=== PATIENT | female | born 1945 | race Caucasian/White ===

== ENCOUNTER → 2021-11-28 13:30 | Outpatient (BNVA) | payer MEDICARE, SELFPAY | PROVIDERS: PCP Family Medicine; Visit Provider Otolaryngology | DX: H61.23 Impacted cerumen, bilateral (principal); Z87.891 Personal history of nicotine dependence | CPT/HCPCS: 69210; 99212 ==

== ENCOUNTER → 2021-12-06 13:18 | Outpatient (BNVA) | payer MEDICARE, SELFPAY | PROVIDERS: PCP Family Medicine; Visit Provider Otolaryngology | DX: B36.9 Superficial mycosis, unspecified (principal); H62.41 Otitis externa in other diseases classified elsewhere, right ear; H90.2 Conductive hearing loss, unspecified; Z87.891 Personal history of nicotine dependence | CPT/HCPCS: 99213 ==

== ENCOUNTER → 2021-12-20 13:57 | Outpatient (BNVA) | payer MEDICARE, SELFPAY | PROVIDERS: PCP Family Medicine; Visit Provider Otolaryngology | DX: Z87.891 Personal history of nicotine dependence (principal); H66.91 Otitis media, unspecified, right ear | CPT/HCPCS: 99213 ==

== ENCOUNTER 2022-01-12 14:22 | Outpatient (CLI) | payer MEDICARE, SELFPAY ==
--- NOTE | 2022-01-12 14:30 | CT_ITS ---
WS: [id number] CT TEMPORAL BONES TECHNIQUE: Noncontrast CT of the temporal bones with coronal and sagittal reformatted images. CLINICAL INFORMATION: checking for mastoiditis COMPARISON: CT head 2 24,019 DLP: 477.[address] scans at [facility] use at least one of these dose optimization techniques: automated e xposure control; mA and/or kV adjustment per patient size (includes targeted exams where dose is matc hed to clinical indication); or iterative reconstruction. FINDINGS: Mild mucosal thickening ethmoid air cells. Paranasal sinuses are well aerated. Normal posterior nasop harynx. Normal parapharyngeal fat. Cavernous carotid calcification. RIGHT: Mastoid air cells are well aerated. Normal external auditory canal. Ossicles are normal in appearance . Middle ear is well aerated. Normal tegmen tympani. Semicircular canals and cochlea are normal in ap pearance. Prussak's space is normal. Normal inner ear structures. Normal vestibular aqueduct. Facial nerve recess is normal. LEFT: Mastoid air cells are well aerated. Normal external auditory canal. Ossicles are normal in appearance . Middle ear is well aerated. Normal tegmen tympani. Semicircular canals and cochlea are normal in ap pearance. Prussak's space is normal. Normal inner ear structures. Normal vestibular aqueduct. Facial nerve recess is normal. Visualized intracranial contents and posterior fossa are normal. CT/CT temporal bone wo con* [id number] IMPRESSION: Normal temporal bone CT
== END 2022-01-12 14:23 | disposition home or self-care (01) ==
LOC: RAD 14:23
PROVIDERS: PCP Family Medicine; Visit Provider Otolaryngology
DX: H66.91 Otitis media, unspecified, right ear (principal)
CPT/HCPCS: 70480

== ENCOUNTER 2022-02-22 15:29 | Emergency (ER) | payer MEDICARE, SELFPAY ==
[2022-02-22 16:01] VITALS: BP 105/62; PULSE 82; RESP 20; TEMP 37.3; O2SAT 96; BMI 43.6
[2022-02-22 17:16] VITALS: BP 115/71; PULSE 74; RESP 18; TEMP 37.9; O2SAT 93
--- NOTE | 2022-02-22 17:16 | PC.NURSE ---
in lobby speaking to pt. pt is in nad. pt updated on room status.
--- NOTE | 2022-02-22 18:01 | ED_ITS ---
HPI - Female Genitourinary General: Chief complaint: Urogenital-Female Stated complaint: Post op, can't urinate Time Seen by Provider: 02/22/22 17:48 Source: patient Mode of arrival: ambulatory Limitations: no limitations History of Present Illness: 76-year-old female who states she had a hemorrhoidectomy yesterday in [place] states that today she has not been able to urinate states she is only able to produce a little bit of urine she also had some body aches and low-grade fevers. She is having lower abdominal pain over her bladder states she has not been able to empty her bladder. Denies any wor sening proved factors. Associated symptoms: Deny abdominal pain, headache(s) or nausea Review of Systems Const: Reports: fever(s), chills and body aches Eyes: Denies: blurry vision or eye discomfort ENMT: Denies: throat pain or dental pain Card: Denies: chest pain Resp: Denies: dyspnea GI: Denies: abdominal pain, nausea, vomiting or diarrhea : Reports: difficulty voiding Musc: Denies: neck pain or back pain Skin/Breast: Denies: rash Neuro: Denies: headache(s) Psych: Denies: depression Mitchell/Lymph: Denies: easy bruising All/Imm: Denies: urticaria PFSH ED PFSH: Medical History Diabetes mellitus History of ear infections History of hypertension Surgical History History of hysterectomy History of tonsillectomy and adenoidectomy History of tubal ligation Family History Other CAD (coronary artery disease) Cancer Diabetes Social History Smoking and tobacco status: former smoker Physical Exam Const: COMMON NORMALS: no acute distress, patient oriented x3 and healthy appearing HENMT: COMMON NORMALS: normocephalic and atraumatic HEAD & SCALP: normocephalic and atraumatic Eye: COMMON NORMALS: Equal, round and reactive pupils present and EOMs intact bilaterally PUPIL: Yes Equal, round and reactive pupils present Neck/C-Spine: COMMON NORMALS: full ROM and supple Chest: COMMONS NORMALS: normal inspection of the chest and normal palpation of entire chest wall Resp: COMMON NORMALS: normal respiratory effort, No retractions, No use of accessory muscles and clear to auscultation bilaterally AUSCULTATION: clear to auscultation bilaterally Cardio: COMMON NORMALS: regular rate, regular rhythm and No murmurs present (Cardio) RATE: regular rate RHYTHM: regular rhythm GI: COMMON NORMALS: Normal to inspection, nondistended, normoactive bowel sounds present, Soft to palpation, non-tender and no masses PALPATION: Yes Soft to palpation Extremity: COMMON NORMALS: normal to inspection and full ROM Neuro: COMMON NORMALS: patient oriented x3, moves all extremities and no focal motor deficits Psych: COMMON NORMALS: mental status grossly normal, Normal thought process present and cooperative THOUGHT PROCESS: Normal thought process present Skin: COMMON NORMALS: no rashes or lesions noted and no wounds GENERAL SKIN EXAM: no rashes or lesions noted Course Vital Signs: Vital signs: Vital Signs Temperature 98.9 F 02/22/22 22:00 Pulse Rate 70 02/22/22 22:00 Respiratory Rate 18 02/22/22 22:00 Blood Pressure 124/72 02/22/22 22:00 Pulse Oximetry 94 02/22/22 22:00 MDM - Female Medical Decision Making Patient presents with urinary retention she feels much improved after Alfred she does have a slight leukocytosis could be from postop no signs of postop infection we will start her on Keflex so she is to follow-up with her surgeon in 2 to 4 days along with urology return if worsening she understands agrees to plan. Lab Data : 02/22/22 18:25 02/22/22 18:25 Radiology Impressions Abdomen/Pelvis CT 02/22/22 18:02 IMPRESSION: 1. Haziness and stranding in the area of the suspected periumbilical hernia repair, with scarring or cellulitis not differentiated. No strangulation of the short herniated small bowel loop inferior to the area of stranding and haziness. 2. Ileocolic anastomosis in the right mid abdomen. Evidence of adhesions. No small bowel obstruction. Marked sigmoid and mild descending diverticulosis, but no diverticulitis. 3. Alfred catheter in the collapsed bladder. 4. Minimally increased density in the dependent gallbladder, cause unclear. No calcified gallstones. 5. 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 Other findings detailed above. Laboratory Results WBC 21.2 10^3/uL (4.0-10.0) H 02/22/22 18: RBC 4.33 10^6/uL (4.1-5.3) 02/22/22 18:25 Hgb 12.4 g/dL (11.5-15.3) 02/22/22 18: Hct 40.9 % (37.0-47.0) 02/22/22 18: MCV 94.5 fl (81-99) 02/22/22 18: MCH 28.6 pg (28.0-34.0) 02/22/22 18: MCHC 30.3 g/dL (30.0-36.0) 02/22/22: RDW 13.3 % (12.1-15.1) 02/22/22: Plt Count 164 10^3/cmm (130-400) 02/22/22 18: MPV 11.6 fL (7.4-10.4) H 02/22/22 18:25 Neut % (Auto) 81.8 % 02/22/22 18: Lymph % (Auto) 10.4 % 02/22/22 18: Davidson % (Auto) 7.0 % 02/22/22 18: Eos % (Auto) 0.0 % 02/22/22 18: Baso % (Auto) 0.3 % 02/22/22: Neut # (Auto) 17.30 10^3/uL (1.8-7.7) H 02/22/22 18: Lymph # (Auto) 2.2 10^3/uL (0.8-4.8) 02/22/22 18: Davidson # (Auto) 1.5 10^3/uL (0.2-0.9) H 02/22/22 18: Eos # (Auto) 0.0 10^3/uL (0.0-0.8) 02/22/22 18: Baso # (Auto) 0.1 10^3/uL (0.0-0.1) 02/22/22 18:25 Nucleated RBC % (auto) 0 % 02/22/22 18:25 Nucleated RBCs # 0.0 /100WBC 02/22/22 18:25 Sodium 134 mmol/L (136-145) L 02/22/22 18:25 Potassium 4.6 mmol/L (3.5-5.1) 02/22/22 18:25 Chloride 99 mmol/L (98-107) 02/22/22 18:25 Carbon Dioxide 25 mmol/L (22-29) 02/22/22 18:25 Anion Gap 14.6 (5-19) 02/22/22 18:25 BUN 13 mg/dL (8-23) 02/22/22 18:25 Creatinine 0.4 mg/dL (0.5-0.9) L 02/22/22 18:25 GFR Calculation Not Reportable 02/22/22 18: Glucose 141 mg/dL (65-115) H 02/22/22 18:25 Calculated Osmolality 280 mOsm/kg (285-295) L 02/22/22 18:25 Lactate 1.1 mmol/L (0.5-2.2) 02/22/22 18:25 Calcium 9.1 mg/dL (8.5-10.5) 02/22/22 18:25 Total Bilirubin 0.8 mg/dL (0.15-1.2) 02/22/22 18:25 AST 27 U/L (0-32) 02/22/22 18:25 ALT 10 U/L (0-33) 02/22/22 18:25 Alkaline Phosphatase 91 U/L (35-105) 02/22/22 18:25 Total Protein 6.9 g/dL (6.6-8.7) 02/22/22 18:25 Albumin 3.6 g/dL (3.5-5.2) 02/22/22 18:25 Globulin 3.3 g/dL (1.3-4.6) 02/22/22 18:25 Lipase 17 U/L (13-60) 02/22/22 18:25 Urine Color Yellow (Yellow) 02/22/22 18:25 Urine Appearance Clear (CLEAR) 02/22/22 18:25 Urine pH 5 (5-7) 02/22/22 18:25 Ur Specific [place] 1.020 (1.005-1.030) 02/22/22 18:25 Urine Protein Neg (Negative) 02/22/22 18:25 Urine Glucose (UA) 2+ (Normal) H 02/22/22 18:25 Urine Ketones Negative (Negative) 02/22/22 18:25 Urine Blood Neg (Negative) 02/22/22 18:25 Urine Nitrate Negative (Negative) 02/22/22 18:25 Urine Bilirubin Neg (Negative) 02/22/22 18:25 Urine Urobilinogen Norm mg/dL (Negative) 02/22/22 18:25 Ur Leukocyte Esterase Negative (Negative) 02/22/22 18:25 Discharge Plan Discharge Patient Disposition: Home Clinical Impression: Urinary retention Condition: Stable Prescriptions: New cephalexin 500 mg capsule 500 mg PO TID 7 Days Qty: 21 0RF No Action trazodone 150 mg tablet 150 mg PO DAILY levothyroxine 25 mcg capsule 25 mcg PO DAILY albuterol sulfate 90 mcg/actuation HFA aerosol inhaler 2 puff inhalation QID cyclobenzaprine 10 mg tablet 10 mg PO TID nystatin 100,000 unit/gram powder 1 applic topical BID fluticasone propionate [Flonase Allergy Relief] 50 mcg/actuation spray,suspension 2 spray intranasal DAILY Rx Instructions: administer into each nostril Toviaz 4 mg tablet extended release 24 hr 4 mg PO DAILY meloxicam [Mobic] 15 mg tablet 15 mg PO DAILY chlorpheniramine maleate [Chlor-Trimeton] 4 mg tablet 4 mg PO Q6H PRN Rx Instructions: do not exceed 2 doses per 24 hrs triamcinolone acetonide 0.1 % cream 1 applic topical DAILY epinephrine 0.3 mg/0.3 mL auto-injector 0.3 mg IM Q10M PRN Rx Instructions: for 2 doses levofloxacin 500 mg tablet 500 mg PO DAILY 15 Days Qty: 15 0RF clotrimazole 1 % solution 1 applic topical QID 15 Days Qty: 30 1RF Rx Instructions: Apply 4 drops to the left ear 4 times daily doxepin 25 mg capsule 25 mg PO DAILY hydrochlorothiazide 25 mg tablet 25 mg PO DAILY [id number] 3.5-10,000-1 mg/mL-unit/mL-% drops,suspension 4 drp otic (ear) TID Qty: 10 6RF levofloxacin 500 mg tablet 500 mg PO DAILY 10 Days Qty: 10 0RF Discharge Orders: Discharge ED (Routine); Ordered 02/22/22 Ordered By: Stacia Young Referrals: Lobo Allison MD [Physician] - 1-3 days Tony Plaza MD [Primary Care Provider] - Discharge Diet: Advance as tolerated Discharge Activity: Resume usual activity Patient Instructions: Acute Urinary Retention in Women (ED) Coding Level of Care Code ED Video Production Engineer for Chg Fwd Exam Comprehensive
--- NOTE | 2022-02-22 18:02 | CTR_ITS ---
PROCEDURE INFORMATION: Exam: CT Abdomen And Pelvis Without Contrast Exam date and time: 02/22/2022 7:42 PM Age: 76 years old Clinical indication: Other: S/P hemmorhoidectomy; Prior surgery; Surgery date: Post-operative (0-2 days); Surgery type: Hemmorhoidectomy-- yesterday. Unable to urinate; Additional info: Fever TECHNIQUE: Imaging protocol: Computed tomography of the abdomen and pelvis without contrast. Radiation optimization: All CT scans at this facility use at least one of these dose optimization techniques: automated exposure control; mA and/or kV adjustment per patient size (includes targeted exams where dose is matched to clinical indication); or iterative reconstruction. COMPARISON: No relevant prior studies available. RADIATION DOSE METRICS: Total DLP (mGy-cm): 1337.98 FINDINGS: Lungs: Slight stranding in the lung bases. Heart: Cardiomegaly. No pericardial effusion or visible coronary artery calcification. Mitral annulus calcification. Liver: Unremarkable liver. Gallbladder and bile ducts: No calcified gallstones or biliary ductal dilatation. Minimally increased density in the dependent gallbladder on image 25 of series 3. Pancreas: No suggestion of pancreatic disease. Spleen: No splenomegaly. Adrenal glands: No adrenal mass. Kidneys and ureters: No hydronephrosis or definite renal mass. Apparent splenule abutting the lateral margin of the left upper kidney. Stomach and bowel: Ileocolic anastomosis in the right mid abdomen. Herniation of a short small bowel loop through an approximately 1.7 x 2.9 cm near-midline defect in the lower anterior abdominal wall mostly inferior to the periumbilical findings; no wall thickening in the herniated loop or haziness in the fat around it. Evidence of adhesions. No small bowel obstruction. Marked sigmoid and mild descending diverticulosis. One diverticulum of the distal transverse colon. Nondistended stomach. Appendix: Surgical absence of the appendix. Intraperitoneal space: No free air. Vasculature: Slight atherosclerosis. No abdominal aortic aneurysm. Lymph nodes: Mild enlargement of a right external iliac lymph node. No suggestion of suspicious lymph nodes elsewhere. Urinary bladder: Alfred catheter in the collapsed bladder. Reproductive: Hysterectomy. Bones/joints: Old compression fractures. 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 Minimal retrolisthesis at L1-L2 and L2-L3. Soft tissues: Haziness and stranding in the subcutaneous fat in the anterior abdominal wall centered around the umbilicus; probable evidence of a hernia repair in this area. Possible small periumbilical hernia containing fat. Developing bilateral inguinal hernias. CT/CT abdomen pelvis wo con [id number] IMPRESSION: 1. Haziness and stranding in the area of the suspected periumbilical hernia repair, with scarring or cellulitis not differentiated. No strangulation of the short herniated small bowel loop inferior to the area of stranding and haziness. 2. Ileocolic anastomosis in the right mid abdomen. Evidence of adhesions. No small bowel obstruction. Marked sigmoid and mild descending diverticulosis, but no diverticulitis. 3. Alfred catheter in the collapsed bladder. 4. Minimally increased density in the dependent gallbladder, cause unclear. No calcified gallstones. 5. 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 Other findings detailed above.
[2022-02-22 18:40] LABS: Add Urine Microscopic? NO; Charge for UA Resulting for Rev
[2022-02-22 18:44] LABS: Basophils # 0.1 10^3/uL (0.0-0.1); Basophils % 0.3 %; Hematocrit 40.9 % (37.0-47.0); Hemoglobin 12.4 g/dL (11.5-15.3); Lymphocytes # 2.2 10^3/uL (0.8-4.8); Lymphocytes % 10.4 %; Mean Corpuscular HGB Conc 30.3 g/dL (30.0-36.0); Mean Corpuscular Hemoglobin 28.6 pg (28.0-34.0); Mean Corpuscular Volume 94.5 fl (81-99); Mean Platelet Volume 11.6 fL (7.4-10.4); Monocytes # 1.5 10^3/uL (0.2-0.9); Neutrophils % 81.8 %; Nucleated Red Blood Cells % 0 %; Platelet Count 164 10^3/cmm (130-400); Red Blood Count 4.33 10^6/uL (4.1-5.3); Red Cell Distribution Width 13.3 % (12.1-15.1); White Blood Count 21.2 10^3/uL (4.0-10.0)
[2022-02-22 18:46] LABS: Blood Urine Neg (Negative); Glucose Urine UA 2+ (Normal); Ketones Urine Negative (Negative); Protein Urine Neg (Negative); Urine Appearance Clear (CLEAR); Urine Color Yellow (Yellow); pH Urine 5 (5-7)
[2022-02-22 18:47] LABS: Bilirubin Urine Neg (Negative); Leukocyte Esterase Urine Negative (Negative); Nitrate Urine Negative (Negative); Urobilinogen Urine Norm (Negative)
[2022-02-22] MEDS: acetaminophen 325 mg Tablet 650 MG PO (18:52)
[2022-02-22] MEDS: lactated ringers 1,000 ML 999 ML IV (18:53)
[2022-02-22 19:07] LABS: Lactate (Lactic Acid level) 1.1 mmol/L (0.5-2.2)
[2022-02-22 19:08] LABS: Alanine Aminotransferase 10 U/L (0-33); Albumin Level 3.6 g/dL (3.5-5.2); Alkaline Phosphatase 91 U/L (35-105); Blood Urea Nitrogen 13 mg/dL (8-23); Calcium 9.1 mg/dL (8.5-10.5); Carbon Dioxide 25 mmol/L (22-29); Chloride 99 mmol/L (98-107); Globulin 3.3 g/dL (1.3-4.6); Glucose 141 mg/dL (65-115); Lipase 17 U/L (13-60); Osmolality Calculated 280 mOsm/kg (285-295); Sodium 134 mmol/L (136-145); Total Bilirubin 0.8 mg/dL (0.15-1.2); Total Protein 6.9 g/dL (6.6-8.7)
[2022-02-22 19:10] LABS: Anion Gap 14.6 (5-19); Aspartate Amino Transferase 27 U/L (0-32); Potassium 4.6 mmol/L (3.5-5.1)
[2022-02-22] MEDS: cephALEXin 500 mg Capsule PO (21:58)
[2022-02-22 22:00] VITALS: BP 124/72; PULSE 70; RESP 18; TEMP 37.2; O2SAT 94
--- NOTE | 2022-02-23 14:57 | DCPLANNER ---
Addendum entered by Radha Garcia 05/10/22 11:27: This appointment was cancelled Addendum entered by Radha Garcia 02/24/22 14:31: Patient has a follow up appointment scheduled for Tuesday, March 15, 2022 at 8:00 with Thelma Olivia at urology. Clinic will call patient with appointment information. Original Note: nc manager had message to schedule a follow up appointment for patient with urology. nc manager sent patients information to the front office staff at urology. Patients information will be printed and reviewed. Clinic will call patient with appointment information.
== END 2022-02-22 22:02 | disposition home or self-care (01) ==
PROVIDERS: Emergency Provider Emergency Medicine; PCP Family Medicine
DX: R33.9 Retention of urine, unspecified (principal); E11.9 Type 2 diabetes mellitus without complications; I10 Essential (primary) hypertension; Z87.891 Personal history of nicotine dependence
CPT/HCPCS: 36415; 51702; 74176; 80053; 81003; 83605; 83690; 85025; 87040; 96360; 99285

== ENCOUNTER → 2023-12-11 14:29 | Outpatient (BNVA) | payer MEDICARE, SELFPAY | PROVIDERS: PCP Family Medicine; Visit Provider Nurse Practitioner Family | DX: I96 Gangrene, not elsewhere classified (principal); T81.31XD Disruption of external operation (surgical) wound, not elsewhere classified, subsequent encounter; Y83.8 Other surgical procedures as the cause of abnormal reaction of the patient, or of later complication, without mention of misadventure at the time of the procedure | CPT/HCPCS: 11042 ==

== ENCOUNTER → 2023-12-17 11:04 | Outpatient (BNVA) | payer MEDICARE, SELFPAY | PROVIDERS: PCP Family Medicine; Visit Provider Thoracic Surgery (Cardiothoracic Vascular Surgery) | DX: T81.31XD Disruption of external operation (surgical) wound, not elsewhere classified, subsequent encounter (principal); Y83.8 Other surgical procedures as the cause of abnormal reaction of the patient, or of later complication, without mention of misadventure at the time of the procedure | CPT/HCPCS: 99212 ==